=== PATIENT | male | born 1975 | race Caucasian/White ===

== ENCOUNTER 2019-12-19 10:05 | Outpatient (REF) | payer BC, SELFPAY | END 2019-12-19 10:06 | disposition home or self-care (01) | LOC: HO.LAB 10:05 | PROVIDERS: Visit Provider Internal Medicine | DX: Z20.828 Contact with and (suspected) exposure to other viral communicable diseases (principal) | CPT/HCPCS: 87635 ==

== ENCOUNTER 2021-03-03 11:47 | Outpatient (REF) | payer BC, SELFPAY ==
[2021-03-03 13:17] LABS: COVID-19 Test Positive (Negative)
== END 2021-03-03 11:48 | disposition home or self-care (01) ==
LOC: HO.LAB 11:47
PROVIDERS: Visit Provider Internal Medicine
DX: Z20.822 Contact with and (suspected) exposure to COVID-19 (principal)
CPT/HCPCS: 87635; C9803

== ENCOUNTER 2021-08-25 14:23 | Outpatient (AMB) | payer BC, SELFPAY ==
--- NOTE | 2021-08-25 14:29 | MHC.OFFVIS ---
Intake Vital Signs 08/25/21 14:39 Height 5 ft 7 in Weight 203 lb BMI 31.8 BP 118/78 Blood Pressure Location Rt brachial Position Sitting Respiration 18 Pulse 83 Pulse Source Pulse Oximeter Intake Visit Reasons: vasectomy reversal consultation Intake Note: Patient is present for vasectomy reversal consultation Accompanied by: Self / Same As Patient Allergies morphine [Morphine] Adverse Reaction (Mild, Verified 08/25/21 14:30) NAUSEA & VOMITING prednisone [PREDNISONE] Adverse Reaction (Unknown, Verified 08/25/21 14:30) HICCUPS SHELLFISH Allergy (Mild, Uncoded 11/07/19 15:48) HIVES HPI HPI Comments History of Present Illness Details Wiliam is a pleasant male. He is a patient of Dr. De Los Santos. He is seen for the following urologic conditions - discussion regarding vasectomy reversal Discussion regarding vasectomy reversal Typically best success is obtained if reversible done within 10 years of initial procedure His procedure was performed over 20 years ago Procedure was discussed in depth including anesthetic requirement This procedure is not covered by insurance would typically cost approximately 10,000 Review of Systems Const Denies chills and Denies fever(s) Card Reports no additional complaints and Denies syncope Resp Denies cough GI Denies abdominal pain and Denies heartburn Reports as per HPI and Denies change in libido Neuro Denies syncope Psych Denies change in libido Endo Denies change in libido Physical Exam Vital Signs: Last Vital Signs Pulse 83 08/25/21 14:39 Resp 18 08/25/21 14:39 BP 118/78 08/25/21 14:39 BMI result Body Mass Index 31.8 Const General: cooperative, healthy appearing, comfortable and no acute distress Orientation/consciousness: patient oriented x3 HEENT Face and sinus: Yes normal facial exam Mouth: moist mucous membranes Neck Neck: Yes normal visual inspection, Yes full ROM and Yes trachea midline Chest Chest palpation & inspection: normal inspection of the chest Resp Effort & Inspection: normal respiratory effort, able to speak in complete sentences and no respiratory distress GI Inspection: Yes normal to inspection Back/Spine/Pelvis Cervical Spine: normal cervical lordosis Thoracic/Lumbar Spine: thoracic and lumbar spine normal to inspection Skin General skin exam: no rashes or lesions noted Neuro General: patient oriented x3, gait normal, tone normal and moves all extremities Extrem General: Yes normal to inspection and Yes capillary refill normal Assessment & Plan Assessment & Plan (1) Infertility, male, post-vasectomy reversal: Code(s): N46.8 - Other male infertility; Z98.890 - Other specified postprocedural states Plan P.r.n. he will call Patient Instructions: Imaging studies, laboratory and physical exam results were discussed and reviewed in detail. No major barriers to patient understanding were identified. An opportunity to ask questions regarding the treatment plan was provided. All questions were answered. The patient expressed understanding and agreement with the above treatment plan. The patient is aware they should contact our office by phone for worsening of their current condition or the appearance of new urologic symptoms. Compliance is encouraged with any medications and followup testing that is ordered. It is a privilege to participate in the urologic care of your patient. If you have any questions or concerns regarding treatment for the above conditions, or other urologic issues, please do not hesitate to contact me. The office telephone contact is [phone]. This note is constructed using voice recognition software. While every effort has been made to ensure accuracy what job titles mean errors may have been included. Yours sincerely, Dr Stephan Zavala MD, [facility] - Urology Providers of Expert, Compassionate Care for the Genitourinary System Coding Level of Care Code New Pt Level 3 (62055) Diagnoses Infertility, male, post-vasectomy reversal N46.8; Z98.890
[2021-08-25 14:39] VITALS: BP 118/78; PULSE 83; RESP 18; BMI 31.8
== END 2021-08-25 15:55 | disposition home or self-care (01) ==
LOC: HO.HUSH 14:23
PROVIDERS: PCP Internal Medicine; Visit Provider Urology
DX: N46.8 Other male infertility (principal); Z98.890 Other specified postprocedural states
CPT/HCPCS: 99203